=== PATIENT | female | born 1985 | race Caucasian/White ===

== ENCOUNTER 2022-10-02 12:14 | Outpatient (CLI) | payer OTHER, SELFPAY ==
--- NOTE | ~2022-10-02 | MMUS_ITS ---
EXAMINATION: MM diagnostic patel BI w cyndi, US breast BI complete HISTORY: Bilateral lateral breast lumps. Baseline mammogram. TECHNIQUE: ML, MLO and CC 3-D tomosynthesis images of were performed and synthetic 2-D images were ge nerated. CAD analysis was submitted and interpreted. High resolution complete bilateral breast ultras ound examination: Renal 4 quadrants and subareolar areas was performed. COMPARISON: None BREAST PARENCHYMAL COMPOSITION: The breasts are heterogeneously dense, which may obscure small masses . FINDINGS: MAMMOGRAPHIC FINDINGS: There is suggestion of a 6 mm circumscribed partially obscured mass in the lower outer quadrant of th e right breast. Another circumscribed partially obscured approximately 4.5 mm mass is suggested in th e inner aspect of the lower outer right breast. Circumscribed 3 cm mass with halo sign suggesting benign cyst is noted in the outer mid left breast. At least several additional smaller circumscribed masses are noted in the mid and outer left breast. No suspicious mass, architectural distortion, malignant calcification, skin thickening or retraction of either breast is evident. Given the presence of bilateral breast masses, some partially obscured, heterogeneously dense stroma which may obscure masses, in addition to bilateral breast pain, bilateral complete breast ultrasound examination was performed. ULTRASOUND: No suspicious mass or shadowing of either breast is detected. There are multiple bilatera l cysts. Right breast: 1:00 4 cm from nipple: Parallel circumscribed 4.4 x 10.6 x 9 mm circumscribed complex lesion without internal vascularity or posterior shadowing, benign in appearance 10:00 5 cm from nipple: Parallel circumscribed 3.8 x 6.8 x 5.0 mm sonolucency with through transmissi on posterior enhancement consistent with simple cyst 11:00 2 cm from nipple: Multi septated 6.8 x 10.3 x 11.5 mm cyst with through transmission posterior enhancement, no internal vascularity, benign in appearance Left breast: 12:00 2 cm from nipple: Circumscribed 11.5 x 8.6 x 5.1 mm sonolucency with through transmission and p osterior enhancement consistent with cyst 12:00 near nipple: 20.7 x 9.5 x 17.7 mm simple cyst with through transmission posterior enhancement 1:00 3 cm from nipple: 6.7 x 14.8 x 8.6 mm cyst with through transmission posterior enhancement 2:00 3 cm from nipple: 12 x 36.4 x 11 mm circumscribed cyst with through transmission and posterior e nhancement 3:00: 5.4 x 8 x 9.2 mm cyst with through transmission posterior enhancement IMPRESSION: 1. Benign findings 2. Routine mammographic screening is recommended BI-RADS Category 2: Benign finding(s). Reviewed, dictated and finalized at location A. O[facility] INTERN IMPRESSION: 1. Benign findings 2. Routine mammographic screening is recommended BI-RADS Category 2: Benign finding(s).
== END 2022-10-02 12:15 | disposition home or self-care (01) ==
LOC: ANHIMG 12:23
PROVIDERS: PCP Nurse Practitioner; Visit Provider Nurse Practitioner
DX: N63.0 Unspecified lump in unspecified breast (principal)
CPT/HCPCS: 76641; 77062; 77066; G0279

== ENCOUNTER 2024-06-13 17:43 | Emergency (ER) | payer OTHER, SELFPAY ==
[2024-06-13 17:50] VITALS: BP 93/69; PULSE 92; RESP 19; TEMP 37.6; O2SAT 99
--- NOTE | 2024-06-13 17:53 | ED.URI ---
HPI - URI/Sore Throat General Chief Complaint: Upper Respiratory Infection Stated Complaint: Sinus Time Seen by Provider: 06/13/24 17:53 Source: patient Mode of arrival: ambulatory Limitations: no limitations History of Present Illness HPI Narrative: 39-year-old female presents with complaint of sore throat, fatigue, body aches, tactile fever for 4 days. Denies nausea vomiting diarrhea. All systems reviewed and negative except as noted above. Related Data Allergies Allergy/AdvReac Type Severity Reaction Status Date / Time No Known Allergies Allergy Verified 06/13/24 17:47 Review of Systems Review of Systems: CONSTITUTIONAL: reports fever, chills, or sweats. EYES: Denies visual changes, redness, or discharge. ENT: Denies rhinorrhea, congestion . Reports sore throat. Denies otalgia. CARDIOVASCULAR: Denies chest pain, palpitations, or edema. RESPIRATORY: Denies cough or dyspnea. GASTROINTESTINAL: Denies abdominal pain, nausea, vomiting, or diarrhea. GENITOURINARY: Denies dysuria or hematuria. SKIN: Denies rash or itching. MUSCULOSKELETAL: Denies back pain, joint pain, or myalgia. NEUROLOGIC: Denies headache, numbness, or weakness. PSYCHIATRIC: Denies anxiety or depression. All other systems reviewed are negative, except as documented in HPI. PMFSH Comments At time of signature, agree with nursing past medical, surgical, social and family history. There is no relevant family history pertinent to the presenting complaint. Exam Narrative: GENERAL: This is a well-nourished, well-developed patient, Ill-appearing but no acute distress HEAD: normocephalic, atraumatic. EYES: PERRL. Sclera clear/white. Vision is grossly intact. EARS: External ears normal, auditory canals clear and without drainage, TMs normal without perforation. Hearing grossly intact. NOSE: External nose normal with no obvious nasal discharge, nares without redness, no rhinorrhea. THROAT: Mucous membranes moist, erythema with mild swelling. No exudates. NECK: Neck supple, non-tender without lymphadenopathy, masses or thyromegaly. CARDIOVASCULAR: Regular rate and rhythm without murmurs, gallops, or rubs. RESPIRATORY: Clear to auscultation. Breath sounds equal bilaterally. No wheezes, rales, or rhonchi. SKIN: warm, Dry, intact with no suspicious lesions or rash, good texture and turgor. NEURO: awake, alert, and oriented to person, place and time. There were no obvious focal neurologic abnormalities. EXTREMITIES: No joint tenderness, effusion, or edema noted. Course Course Level of Care: Express Care Visit Vital Signs Vital signs: Vital Signs Temperature 37.6 C 06/13/24 17:50 Pulse Rate 92 06/13/24 17:50 Respiratory Rate 19 06/13/24 17:50 Blood Pressure 93/69 L 06/13/24 17:50 Pulse Oximetry 99 06/13/24 17:50 Oxygen Delivery Room Air 06/13/24 17:50 Temperature 37.6 C 06/13/24 17:50 Pulse Rate 92 06/13/24 17:50 Respiratory Rate 19 06/13/24 17:50 Blood Pressure 93/69 L 06/13/24 17:50 Pulse Oximetry 99 06/13/24 17:50 Oxygen Delivery Room Air 06/13/24 17:50 reviewed MDM - URI/Sore Throat MDM Narrative Medical decision making narrative: Patient is aware of diagnosis, understands and agrees to treatment plan. Anticipatory guidance given. Patient agrees to follow-up as directed and is aware of reasons to seek care at the emergency department. Portions of this record may have been created with voice recognition software Discharge Plan Discharge Clinical Impression: Acute pharyngitis Qualifiers: Pharyngitis/tonsillitis etiology: unspecified etiology Qualified Code(s): J02.9 - Acute pharyngitis, unspecified Patient Disposition: Home, Self-Care Condition: Stable Instructions: Antibiotic Form, Pharyngitis (ED) Additional Instructions: your strep test was negative today. Due to her symptoms and exam findings I am prescribing an antibiotic. Take antibiotic as prescribed until gone. Change toothbrush after taking antibiotic for 24 hours. Take ibuprofen or Tylenol every 6-8 hours as needed for pain. drink at least 64 oz of water a day. Follow-up with your primary care physician if symptoms are not improving. Prescriptions: New amoxicillin 500 mg capsule 500 mg PO Q12H 10 Days Qty: 20 0RF Follow-up/Referrals: Shannon,Cindy [facility] [employer] [Primary Care Provider] - Time of Disposition: 18:12
[2024-06-13 18:12] LABS: EDSTREPNEGPOS1 Negative (Negative)
== END 2024-06-13 18:21 | disposition home or self-care (01) ==
PROVIDERS: Emergency Provider Nurse Practitioner Family; PCP Nurse Practitioner
DX: J02.9 Acute pharyngitis, unspecified (principal)
CPT/HCPCS: 87081; 87880; 99213; G0463